=== PATIENT | male | born 1945 | race Caucasian/White ===

== ENCOUNTER → 2016-08-12 | Outpatient (CLI) | payer OTHER ==
[~2016-08-12] VITALS: Ht 182.9 cm; Wt 109.9 kg
[~2016-08-12] MED LIST: AMB10 PO; ASPEC81 PO; AVD5 PO; CLX20 PO; FLM4 PO; L-THYROXINE; META1TAB22 PO; METO50TA16 PO; MULT-506 PO; PRAV20TA PO; [UNRECOGNIZED DRUG - CODE]; [UNRECOGNIZED DRUG - OTHER]; [UNRECOGNIZED DRUG - OTHER]
[2016-08-12 15:29] VITALS: BP 136/80; PULSE 71; Ht 182.9 cm; Wt 109.9 kg
== END | disposition home or self-care (01) ==
LOC: C.NEUR 14:21
PROVIDERS: ATTEND Internal Medicine Pulmonary Disease
DX: G47.30 Sleep apnea, unspecified (principal)

== ENCOUNTER → 2016-11-04 | Outpatient (CLI) | payer OTHER ==
[2016-11-04 10:39] LABS: BASO % 0.4 %; BASO ABS # 0.03 K/uL (0-0.2); COMPLETE YES; EOS % 4.5 %; HEMATOCRIT 42.2 % (42-52); IG% 0.3 %; LYMPH % 21.4 %; LYMPH ABS # 1.46 K/uL (1.2-3.4); MEAN CELL VOLUME 89.4 fL (80-100); MEAN CORPUSCULAR HEMOGLOBIN 28.4 pg (25-34); MEAN CORPUSCULAR HGB CONC 31.8 g/dl (32-36); MEAN PLATELET VOLUME 10.6 fL (7.4-10.4); MONO % 10.8 %; NEUT % 62.6 %; PLATELET COUNT 234 K/uL (130-400); RED BLOOD COUNT 4.72 M/uL (4.7-6.1); WHITE BLOOD COUNT 6.83 K/uL (4.8-10.8)
[2016-11-04 11:00] LABS: ALT/SGPT 26 U/L (12-78); BLOOD UREA NITROGEN 21 mg/dl (7-18); BUN/CREATININE RATIO 19.1 (10-20); C-REACTIVE PROTEIN < 0.29 mg/dl (0-0.29); CARBON DIOXIDE 26 mmol/L (21-32); CHLORIDE 108 mmol/L (98-107); CHOLESTEROL 131 mg/dl (0-200); GLUCOSE 98 mg/dl (70-99); MAGNESIUM 2.4 mg/dl (1.8-2.4); POTASSIUM 4.5 mmol/L (3.5-5.1); SODIUM 142 mmol/L (136-145); TRIGLYCERIDES 220 mg/dl (0-150); VERY LOW DENSITY LIPOPROT CALC 44 mg/dl
[2016-11-04 11:08] LABS: ALB/GLOB RATIO 1.1 (0.9-2); ALKALINE PHOSPHATASE 81 U/L (45-117); AST/SGOT 24 U/L (15-37); CHOLESTEROL/HDL RATIO 4.4; HDL CHOLESTEROL 30 mg/dl; LDL CHOLESTEROL CALCULATED 57 mg/dl; PROSTATE SPECIFIC ANTIGEN 0.906 ng/ml (0.000-4.000); THYROID STIMULATING HORMONE 0.866 uIu/ml (0.300-4.500)
[2016-11-04 11:32] LABS: LYME DISEASE AB IGG NEG (NEG)
[2016-11-04 11:35] LABS: LYME DISEASE AB IGM NEG (NEG)
== END | disposition home or self-care (01) ==
LOC: C.LAB1850 09:17
PROVIDERS: ATTEND Internal Medicine
DX: M25.50 Pain in unspecified joint (principal); E03.9 Hypothyroidism, unspecified; I42.9 Cardiomyopathy, unspecified; I48.91 Unspecified atrial fibrillation; Z12.5 Encounter for screening for malignant neoplasm of prostate

== ENCOUNTER → 2016-12-24 | Outpatient (CLI) | payer OTHER ==
[2016-12-24 12:50] LABS: BLOOD UREA NITROGEN 15 mg/dl (7-18); BUN/CREATININE RATIO 14.1 (10-20); CALCIUM 9.1 mg/dl (8.5-10.1); CARBON DIOXIDE 26 mmol/L (21-32); CHLORIDE 110 mmol/L (98-107); GLUCOSE 91 mg/dl (70-99); POTASSIUM 4.3 mmol/L (3.5-5.1); SODIUM 141 mmol/L (136-145)
== END | disposition home or self-care (01) ==
LOC: C.LAB1850 10:59
PROVIDERS: ATTEND Physician Assistant
DX: I42.9 Cardiomyopathy, unspecified (principal)

== ENCOUNTER → 2017-02-06 | Outpatient (CLI) | payer OTHER ==
[~2017-02-06] VITALS: Ht 182.9 cm; Wt 109.3 kg
[2017-02-06 14:41] VITALS: BP 106/74; PULSE 80; Ht 182.9 cm; Wt 109.3 kg
== END | disposition home or self-care (01) ==
LOC: C.NEUR 14:32
PROVIDERS: ATTEND Physician Assistant
DX: G47.30 Sleep apnea, unspecified (principal)

== ENCOUNTER → 2017-04-28 | Outpatient (CLI) | payer OTHER ==
[2017-04-28 12:04] LABS: HEMATOCRIT 42.5 % (42-52); MEAN CELL VOLUME 86.9 fL (80-100); MEAN CORPUSCULAR HEMOGLOBIN 27.2 pg (25-34); MEAN CORPUSCULAR HGB CONC 31.3 g/dl (32-36); MEAN PLATELET VOLUME 9.6 fL (7.4-10.4); PLATELET COUNT 218 K/uL (130-400); RED BLOOD COUNT 4.89 M/uL (4.7-6.1); WHITE BLOOD COUNT 6.02 K/uL (4.8-10.8)
[2017-04-28 12:34] LABS: ALT/SGPT 25 U/L (12-78); AST/SGOT 16 U/L (15-37); BLOOD UREA NITROGEN 21 mg/dl (7-18); BUN/CREATININE RATIO 18.6 (10-20); CALCIUM 9.2 mg/dl (8.5-10.1); CARBON DIOXIDE 27 mmol/L (21-32); CHLORIDE 104 mmol/L (98-107); CREATININE 1.13 mg/dl (0.60-1.40); GLUCOSE 103 mg/dl (70-99); POTASSIUM 4.3 mmol/L (3.5-5.1); SODIUM 138 mmol/L (136-145)
[2017-04-28 12:44] LABS: CHOLESTEROL 124 mg/dl (0-200); CHOLESTEROL/HDL RATIO 3.6; HDL CHOLESTEROL 34 mg/dl; LDL CHOLESTEROL CALCULATED 46 mg/dl; TRIGLYCERIDES 220 mg/dl (0-150); VERY LOW DENSITY LIPOPROT CALC 44 mg/dl
== END | disposition home or self-care (01) ==
LOC: C.LAB1850 10:52
PROVIDERS: ATTEND Internal Medicine
DX: E78.5 Hyperlipidemia, unspecified (principal); I48.91 Unspecified atrial fibrillation; E03.9 Hypothyroidism, unspecified

== ENCOUNTER → 2017-06-09 | Outpatient (CLI) | payer OTHER ==
[~2017-06-09] MED LIST changes: +OPTIRAY 320 IV PRN
[2017-06-09 17:39] LABS: BASO % 0.3 %; BASO ABS # 0.04 K/uL (0-0.2); EOS % 2.2 %; HEMATOCRIT 43.6 % (42-52); HEMOGLOBIN 13.9 g/dL (14.0-18.0); IG# 0.05 K/uL (0.00-0.02); LYMPH % 14.3 %; LYMPH ABS # 1.95 K/uL (1.2-3.4); MEAN CELL VOLUME 85.7 fL (80-100); MEAN CORPUSCULAR HEMOGLOBIN 27.3 pg (25-34); MEAN CORPUSCULAR HGB CONC 31.9 g/dl (32-36); MONO % 12.2 %; MONO ABS # 1.67 K/uL (0.11-0.59); NEUT % 70.6 %; NEUT ABS # 9.65 K/uL (1.4-6.5); PLATELET COUNT 263 K/uL (130-400); RED CELL DISTRIBUTION WIDTH CV 15.2 % (11.5-14.5); RED CELL DISTRIBUTION WIDTH SD 47.8 fL (36.4-46.3); WHITE BLOOD COUNT 13.66 K/uL (4.8-10.8)
[2017-06-09 18:12] LABS: ALBUMIN 3.6 gm/dl (3.4-5.0); ALT/SGPT 27 U/L (12-78); AST/SGOT 15 U/L (15-37); BLOOD UREA NITROGEN 16 mg/dl (7-18); CALCIUM 9.1 mg/dl (8.5-10.1); CARBON DIOXIDE 29 mmol/L (21-32); CREATININE 1.13 mg/dl (0.60-1.40); GLUCOSE 86 mg/dl (70-99); POTASSIUM 4.3 mmol/L (3.5-5.1); SODIUM 134 mmol/L (136-145)
[2017-06-09 18:15] LABS: ALKALINE PHOSPHATASE 107 U/L (45-117); TOTAL PROTEIN 7.9 gm/dl (6.4-8.2)
--- NOTE | 2017-06-09 19:58 | DIAGNOSTIC IMAGING REPORT ---
CT ABD/PELVIS IV AND ORAL CONT CLINICAL HISTORY: K57.90 EvumyehehmnrgkK83.9 Abdominal painR10.814 COMPARISON STUDY: January 2008 TECHNIQUE: Following the IV administration of 93 mL of Optiray-320, CT scan of the abdomen and pelvis was performed from the lung bases to the proximal femurs. Images are reviewed in the axial, sagittal, and coronal planes. IV contrast was administered without complication. A dose lowering technique was utilized adhering to the principles of ALARA. CT DOSE: 1017.42 mGy.cm FINDINGS: Lower chest: The heart is enlarged. There are by basilar atelectatic changes. Liver: The contrast-enhanced liver is normal in size, contour, and attenuation. There is no intrahepatic biliary ductal dilatation. The hepatic veins and portal veins are patent. Gallbladder: Cholelithiasis Spleen: Normal in size and attenuation. Pancreas: Unremarkable. Adrenal glands: Unremarkable. Kidneys: No solid renal masses are visualized. There is no significant hydronephrosis. There is mild bilateral distal ureteral dilatation. Bowel: There are no transition zone to indicate bowel obstruction. The appendix appears normal. There is moderate sigmoid wall thickening with infiltration the perisigmoid fat. Multiple diverticula are present this level. The findings are indicative of acute diverticulitis. There are no fluid collections to indicate a drainable abscess. Peritoneum: There is no intraperitoneal free air or abdominal ascites. Vasculature: There is mild aneurysmal dilatation of the infrarenal abdominal aorta which measures 32 mm in maximal diameter. Adenopathy: None. Pelvic viscera: There is a 2 cm right posterior bladder diverticulum. Is mild bladder wall thickening Skeletal structures: There is a prominent superior endplate L3 Schmorl's node with reactive sclerosis IMPRESSION: 1. Moderately extensive sigmoid diverticulitis. No current evidence of a drainable peridiverticular abscess 2. No evidence of bowel obstruction. No evidence of free air 3. Normal appendix 4. Mild aneurysmal dilatation of the infrarenal abdominal aorta 5. 2 cm posterior bladder diverticulum Electronically signed by: Darrell Farias M.D. 06/09/2017 7:57 PM Dictated Date/Time: 06/09/2017 7:51 PM
== END ==
LOC: C.CTS 17:10
PROVIDERS: ATTEND Nurse Practitioner Adult Health
DX: K57.92 Diverticulitis of intestine, part unspecified, without perforation or abscess without bleeding (principal); R10.9 Unspecified abdominal pain; R10.814 Left lower quadrant abdominal tenderness; N32.3 Diverticulum of bladder

== ENCOUNTER → 2017-06-30 | Outpatient (CLI) | payer OTHER ==
[~2017-06-30] MED LIST changes: -OPTIRAY 320 IV PRN
--- NOTE | 2017-06-30 11:41 | DIAGNOSTIC IMAGING REPORT ---
PA CHEST WITH RIGHT-SIDED RIB SERIES CLINICAL HISTORY: Atypical chest pain. Right-sided chest wall pain. FINDINGS: A PA chest radiograph with 4 additional views may right-sided rib series is compared to study dated 09/05/2015. The patient is status post midline sternotomy. The heart is enlarged and there is atherosclerotic calcification of the thoracic aorta. The pulmonary vasculature is noncongested. Chronic interstitial thickening is similar to previous. Mild bibasilar atelectasis is observed. No airspace consolidation or pleural effusion is identified. Trace fluid versus scarring is again seen along the right minor fissure. No pneumothorax is seen. The skeletal structures are osteopenic. There is no radiographic evidence of right-sided rib fracture on the rib series. The remainder of the bony thorax is grossly intact. A calcified gallstone is again noted in the right upper quadrant. IMPRESSION: 1. Cardiomegaly with no acute cardiopulmonary abnormality. 2. There is no radiographic evidence of right-sided rib fracture on the rib series as clinically queried. Electronically signed by: Aleksander Taylor M.D. 06/30/2017 11:39 AM Dictated Date/Time: 06/30/2017 11:36 AM
== END | disposition home or self-care (01) ==
LOC: C.RAD1850 11:23
PROVIDERS: ATTEND Internal Medicine
DX: R07.89 Other chest pain (principal); R07.81 Pleurodynia; I51.7 Cardiomegaly

== ENCOUNTER → 2017-08-04 | Day surgery (SDC) | payer OTHER ==
[2017-07-21 13:28] VITALS: BMI 31.0
[~2017-08-04] VITALS: Ht 182.9 cm; Wt 105.0 kg
[~2017-08-04] MED LIST changes: -AMB10 PO; +ASCO10003 PO; -ASPEC81 PO; +ASPI81TA28 PO; +ATROPINE SULFATE 0.1 MG/ML 5ML SYR IV PRN; -AVD5 PO; +CETI10TA84 PO; -CLX20 PO; +EpHEDrine SULFATE INJ 50 MG/ML AMP IV PRN; -FLM4 PO; +FRS/40 PO; -L-THYROXINE; +LEVO150T9 PO; +LIDOCAINE HCL 2% 2 ML VIAL (20MG/ML) ONE; +LOSA100T65 PO; +MAGN400T6 PO; -META1TAB22 PO; +METO100T44 PO; -METO50TA16 PO; -MULT-506 PO; -PRAV20TA PO; +PRAV80TA2 PO; +PROPOFOL IV EMULSION 10 MG/ML 20 ML VIAL IV ONE; +RIVA1TAB4 PO; +SODIUM CHLORIDE 0.9% 500ML 500 ML IV ONE; +VNTHFA/IN INH; -[UNRECOGNIZED DRUG - CODE]; -[UNRECOGNIZED DRUG - OTHER]; -[UNRECOGNIZED DRUG - OTHER]
[2017-08-04 10:51] VITALS: Ht 182.9 cm; Wt 105.0 kg
--- NOTE | 2017-08-04 11:29 | Endo History and Physical ---
History & Physical Date of Service: Aug 04, 2017. Chief Complaint: HX OF DIVERTICULITIS IN MAY 2017 Referring Physician: DR CASTRO History of Present Illness 72 yo CM who presents for colonoscopy secondary to recent bout of diverticulitis. Past Surgical History Hx Cardiac Surgery: Yes (HEART CATH X3, STENTS X3; CABG X5 VESSELS) Hx Internal Defibrillator: No Hx Pacemaker: No Hx Abdominal Surgery: No Hx of Implantable Prosthesis: No Hx Post-Op Nausea and Vomiting: No Hx Cancer Surgery: No Hx Thoracic Surgery: No Hx Orthopedic: No Hx Urinary Tract Surgery: Yes (GREENLIGHT TURP) Family History None Social History Smoking Status: Former Smoker Hx Substance Use: No Hx Alcohol Use: Yes (OCCASIONAL) Allergies Coded Allergies: Morphine (Verified Allergy, Unknown, ITCHING, 08/04/17) Current Medications Reported Home Medications Medications Dose Route/Sig Max Daily Dose Days Date Category Ventolin Hfa (Albuterol) 200 Puffs/55006 Mcg Aers 2-4 Puffs INH Q6H PRN 07/21/17 Reported Vitamin C (Ascorbic Acid) 1,000 Mg Tab 1 Tab PO HS 07/21/17 Reported Zyrtec (Cetirizine HCl) 10 Mg Tab 10 Mg PO HS 07/21/17 Reported Xarelto (Rivaroxaban) 20 Mg Tab 20 Mg PO HS 07/21/17 Reported Toprol-Xl (Metoprolol Succinate) 100 Mg Tabcr 100 Mg PO BID 07/21/17 Reported Mag-Ox (Magnesium Oxide) 400 Mg Tab 400 Mg PO QAM 07/21/17 Reported Cozaar (Losartan Potassium) 100 Mg Tab 100 Mg PO QAM 07/21/17 Reported Levothyroxine Sodium 150 Mcg Tab 1 Tab PO QAM 07/21/17 Reported Lasix (Furosemide) 40 Mg Tab 40 Mg PO QAM 07/21/17 Reported Aspirin Ec (Aspirin) 81 Mg Tab 81 Mg PO HS 07/21/17 Reported Pravastatin Sodium 80 Mg Tab 1 Tab PO HS 07/21/17 Reported Vital Signs Weight (Kilograms): 105.00 Height (Feet): 6 Height (Inches): 0 Date Time Temp Pulse Resp B/P (MAP) Pulse Ox O2 Delivery O2 Flow Rate FiO2 08/04/17 11:06 36.4 72 18 126/99 (108) 97 Room Air Physical Exam General Appearance: WD/WN, no apparent distress Respiratory/Chest: Auscultation: breath sounds normal Cardiovascular: Heart Auscultation: RRR Abdomen: Bowel Sounds: normal Inspection & Palpation: soft, non-distended, no tenderness, guarding & rebound Assessment and Plan Assessment: 72 yo CM who presents for colonoscopy secondary to recent bout of diverticulitis in May 2017. Plan: Proceed with colonoscopy.
--- NOTE | 2017-08-04 12:22 | GI REPORT ---
Procedure Date: 08/04/2017 11:50 AM Procedure: Colonoscopy Indications: Follow-up of diverticulitis Medicines: Monitored Anesthesia Care Complications: No immediate complications. Estimated Blood Loss: Estimated blood loss: none. Procedure: Pre-Anesthesia Assessment: - Prior to the procedure, a History and Physical was performed, and patient medications and allergies were reviewed. The patient's tolerance of previous anesthesia was also reviewed. The risks and benefits of the procedure and the sedation options and risks were discussed with the patient. All questions were answered, and informed consent was obtained. Prior Anticoagulants: The patient last took aspirin 2 days and Xarelto (rivaroxaban) 3 days prior to the procedure. ASA Grade Assessment: IV - A patient with severe systemic disease that is a constant threat to life. After reviewing the risks and benefits, the patient was deemed in satisfactory condition to undergo the procedure. After I obtained informed consent, the scope was passed under direct vision. Throughout the procedure, the patient's blood pressure, pulse, and oxygen saturations were monitored continuously. The On-site loaner was introduced through the anus and advanced to the cecum, identified by appendiceal orifice and ileocecal valve. The colonoscopy was performed without difficulty. The patient tolerated the procedure well. The quality of the bowel preparation was good. The ileocecal valve, appendiceal orifice, and rectum were photographed. Findings: The perianal and digital rectal examinations were normal. Two sessile polyps were found in the ascending colon. The polyps were 5 to 7 mm in size. These polyps were removed with a hot snare. Resection was complete, but the polyp tissue was only partially retrieved. Multiple small-mouthed diverticula were found in the sigmoid colon. Non-bleeding internal hemorrhoids were found during retroflexion. The hemorrhoids were small. Impression: - Two 5 to 7 mm polyps in the ascending colon, removed with a hot snare. Complete resection. Partial retrieval. - Diverticulosis in the sigmoid colon. - Non-bleeding internal hemorrhoids. Recommendation: - Resume previous diet. - Continue present medications. - Repeat colonoscopy for surveillance based on pathology results. - Return to primary care physician as previously scheduled. Jan Silva DO 08/04/2017 12:21:42 PM This report has been signed electronically. Note Initiated On: 08/04/2017 11:50 AM I attest to the content of the Intraoperative Record and orders documented therein, exceptions below
--- NOTE | 2017-08-04 12:24 | Discharge Instructions ---
Endoscopy Patient Instructions Date / Procedure(s) Performed Aug 04, 2017. Colonoscopy Allergy Information Coded Allergies: Morphine (Verified Allergy, Unknown, ITCHING, 08/04/17) Discharge Date / Findings Aug 04, 2017. Colon polyps Diverticulosis Internal hemorrhoids Medication Instructions Stopped Medication(s): XALRELTO ASA OK to resume all medications today as prescribed Reported Home Medications Medications Dose Route/Sig Max Daily Dose Days Date Category Ventolin Hfa (Albuterol) 200 Puffs/58785 Mcg Aers 2-4 Puffs INH Q6H PRN 07/21/17 Reported Vitamin C (Ascorbic Acid) 1,000 Mg Tab 1 Tab PO HS 07/21/17 Reported Zyrtec (Cetirizine HCl) 10 Mg Tab 10 Mg PO HS 07/21/17 Reported Xarelto (Rivaroxaban) 20 Mg Tab 20 Mg PO HS 07/21/17 Reported Toprol-Xl (Metoprolol Succinate) 100 Mg Tabcr 100 Mg PO BID 07/21/17 Reported Mag-Ox (Magnesium Oxide) 400 Mg Tab 400 Mg PO QAM 07/21/17 Reported Cozaar (Losartan Potassium) 100 Mg Tab 100 Mg PO QAM 07/21/17 Reported Levothyroxine Sodium 150 Mcg Tab 1 Tab PO QAM 07/21/17 Reported Lasix (Furosemide) 40 Mg Tab 40 Mg PO QAM 07/21/17 Reported Aspirin Ec (Aspirin) 81 Mg Tab 81 Mg PO HS 07/21/17 Reported Pravastatin Sodium 80 Mg Tab 1 Tab PO HS 07/21/17 Reported Provider Instructions Activity Restrictions - No exercising or heavy lifting for 24 hours. - Do not drink alcohol the day of the procedure. - Do not drive a car or operate machinery until the day after the procedure. - Do not make any important decisions or sign important papers in 24 hours after the procedure. Following Day: - Return to full activity which may include returning to work/school. Diet Start your diet with liquids and light foods (jello, soup, juice, toast). Then eat your usual diet if not nauseated. Treatment For Common After Affects For mild abdominal pain, bloating, or excessive gas: - Rest - Eat lightly - Lie on right side Follow-Up Information Follow-up with DR CASTRO as scheduled Anesthesia Information What You Should Know You have had a procedure that required some medicine to reduce anxiety and discomfort. This treatment is called moderate sedation. After receiving the treatment, you may be sleepy, but you will be able to breathe on your own. The effects of the treatment may last for several hours. Follow these instructions along with Activity/Diet recommendations noted above: * Do NOT do anything where dizziness or clumsiness would be dangerous. * Rest quietly at home today, then you can be up and about tomorrow. * Have a responsible person stay with you the rest of today. * You may have had an I.V. today. If so, you may take the dressing off later today. Recommendations Call your doctor if: * Trouble breathing * Continuous vomiting for more than 24 hours * Temperature above 101 degrees * Severe abdominal pain or bloating * Pain not relieved by pain medicine ordered * There is increased drainage or redness from any incision * A large amount of rectal bleeding greater than 2-3 tablespoons. (If you had a polyp/s removed or have hemorrhoids, a small amount of blood - from the rectum is to be expected.) * You have any unanswered questions or concerns. IN THE EVENT OF A SERIOUS EMERGENCY, GO TO THE NEAREST EMERGENCY ROOM Your discharge instructions were prepared by provider Jan Silva. Patient Instructions Signature Page Jose Juan Vasquez Patient (or Guardian) Signature/Date: I have read and understand the instructions given to me by my caregivers. Caregiver/RN/Doctor Signature/Date: The above-named patient and/or guardian has received patient instructions on this date. + Original Patient Signature Page (only) stays with chart. Please make copy for patient.
--- NOTE | 2017-08-04 12:25 | Anesthesiology Progress Note ---
Anesthesia Post Op Note Date & Time Aug 04, 2017 at 12:24 Vital Signs Vital Signs Past 12 Hours Date Time Temp Pulse Resp B/P (MAP) Pulse Ox O2 Delivery O2 Flow Rate FiO2 08/04/17 11:06 36.4 72 18 126/99 (108) 97 Room Air Notes Mental Status: alert / awake / arousable, participated in evaluation Pt Amnestic to Procedure: Yes Nausea / Vomiting: adequately controlled Pain: adequately controlled Airway Patency, RR, SpO2: stable & adequate BP & HR: stable & adequate Hydration State: stable & adequate Anesthetic Complications: no major complications apparent
[2017-08-04 12:47] VITALS: BP 108/66; PULSE 81; O2SAT 95
== END | disposition home or self-care (01) ==
LOC: C.GI 10:40
PROVIDERS: ATTEND Internal Medicine
DX: K57.92 Diverticulitis of intestine, part unspecified, without perforation or abscess without bleeding (principal); D12.2 Benign neoplasm of ascending colon; K57.30 Diverticulosis of large intestine without perforation or abscess without bleeding; K64.8 Other hemorrhoids; Z95.5 Presence of coronary angioplasty implant and graft; Z95.1 Presence of aortocoronary bypass graft; F17.200 Nicotine dependence, unspecified, uncomplicated; Z88.5 Allergy status to narcotic agent; Z79.82 Long term (current) use of aspirin; Z79.899 Other long term (current) drug therapy

== ENCOUNTER → 2017-08-28 | Outpatient (CLI) | payer OTHER ==
[~2017-08-28] VITALS: Ht 182.9 cm; Wt 110.6 kg
[~2017-08-28] MED LIST changes: -ATROPINE SULFATE 0.1 MG/ML 5ML SYR IV PRN; -EpHEDrine SULFATE INJ 50 MG/ML AMP IV PRN; -LIDOCAINE HCL 2% 2 ML VIAL (20MG/ML) ONE; -PROPOFOL IV EMULSION 10 MG/ML 20 ML VIAL IV ONE; -SODIUM CHLORIDE 0.9% 500ML 500 ML IV ONE
[2017-08-28 13:30] VITALS: BP 144/70; PULSE 51; Ht 182.9 cm; Wt 110.6 kg
== END | disposition home or self-care (01) ==
LOC: C.NEUR 13:10
PROVIDERS: ATTEND Physician Assistant
DX: G47.30 Sleep apnea, unspecified (principal)

== ENCOUNTER → 2017-12-11 | Outpatient (CLI) | payer OTHER ==
[2017-12-11 12:24] LABS: HEMATOCRIT 44.8 % (42-52); HEMOGLOBIN 14.4 g/dL (14.0-18.0); MEAN CELL VOLUME 87.2 fL (80-100); MEAN CORPUSCULAR HGB CONC 32.1 g/dl (32-36); MEAN PLATELET VOLUME 9.6 fL (7.4-10.4); PLATELET COUNT 232 K/uL (130-400); RED CELL DISTRIBUTION WIDTH CV 14.8 % (11.5-14.5); RED CELL DISTRIBUTION WIDTH SD 47.2 fL (36.4-46.3); WHITE BLOOD COUNT 7.65 K/uL (4.8-10.8)
[2017-12-11 13:13] LABS: ALT/SGPT 26 U/L (12-78); AST/SGOT 19 U/L (15-37); BLOOD UREA NITROGEN 19 mg/dl (7-18); CARBON DIOXIDE 30 mmol/L (21-32); CHOLESTEROL 128 mg/dl (0-200); CREATININE 1.17 mg/dl (0.60-1.40); GLUCOSE 92 mg/dl (70-99); LDL CHOLESTEROL CALCULATED 48 mg/dl; POTASSIUM 4.2 mmol/L (3.5-5.1); SODIUM 138 mmol/L (136-145)
== END | disposition home or self-care (01) ==
LOC: C.LAB1850 11:23
PROVIDERS: ATTEND Internal Medicine
DX: I48.91 Unspecified atrial fibrillation (principal); E03.9 Hypothyroidism, unspecified; E78.5 Hyperlipidemia, unspecified; K57.92 Diverticulitis of intestine, part unspecified, without perforation or abscess without bleeding